=== PATIENT | female | born 1960 | race African-American/Black ===

== ENCOUNTER 2024-06-25 13:13 | Emergency (ER) | payer OTHER, SELFPAY ==
[2024-06-25 13:15] VITALS: BP 138/78
[2024-06-25 13:27] VITALS: BMI 33.9
[2024-06-25 13:37] LABS: % Basophils 0.5 % (0-2); % Eosinophils 0.4 % (0-6); % Immature Granulocytes 0.3 % (0-0.5); % Lymphocytes 14.5 % (20.5-51.1); % Monocytes 5.5 % (1.7-9.3); % Neutrophils 78.8 % (42.2-75.2); Absolute Basophils 0.1 10^3/uL (0-0.2); Absolute Lymphocytes 1.6 10^3/uL (1.2-3.4); Absolute Monocytes 0.6 10^3/uL (0.1-0.6); Absolute Neutrophils 8.8 10^3/uL (1.4-6.5); Hematocrit 42.2 % (37.0-47.0); Hemoglobin 13.5 g/dL (12.0-16.0); Mean Corpuscular Volume 84.4 fL (81.0-99.0); Mean Platelet Volume 11.7 fL (7.4-10.4); Nucleated Red Blood Cells % 0 %; Platelet Count 229 10^3/uL (130-400); Red Cell Dist. Width 13.4 % (11.5-14.5); White Blood Cell Count 11.2 10^3/uL (4.8-10.8)
--- NOTE | 2024-06-25 13:42 | ED.GENMED ---
History of Present Illness
<Natasha Grant PA-C - Last Filed: 06/25/24 18:45>
General
Chief Complaint: Abdominal Pain
Source: patient
Exam Limitations: none
Time Seen by Provider: 06/25/24 13:18
History of Present Illness
History of Present Illness:
64yoF with a history of hypertension, hyperlipidemia, GERD, chronic back pain on morphine, and multiple prior abdominal surgeries presenting via EMS for evaluation of abdominal pain. She started with some soreness to her abdomen yesterday before
she went to bed. She woke up around 3 AM with nausea and vomiting. She has vomited about 5 times since her symptoms began. She started to experience a generalized abdominal discomfort around 7 AM which she describes as a throbbing, pulsating, and
burning pain. She had a normal bowel movement this morning. She is otherwise asymptomatic and denies any chest pain, shortness of breath, hematemesis, UTI symptoms. Previous abdominal surgeries include a gastric sleeve in 2010, duodenal switch in
2018, appendectomy, cholecystectomy, and hysterectomy. She denies any suspicious food intake, recent travel, or sick contacts.
Past History
<Natasha Grant PA-C - Last Filed: 06/25/24 18:45>
Past History
ED Past Medical History: HTN, Hypercholesterolemia and Other (Chronic back pain, Johnson's esophagus)
ED Past Surgical History: Appendectomy, Cholecystectomy, Gynecological (Hysterectomy), Orthopedic and Other (Gastric bypass)
Social History
Tobacco: Smoker
Alcohol: None
Drug: None
Personal: Single
Living: alone
Family History
Family History: Other (Noncontributory)
Phy Exam
<Natasha Grant PA-C - Last Filed: 06/25/24 18:45>
General Physical Exam
General Presentation: well appearing and no apparent distress
General Skin: warm and dry
General Habitus: normal
General Mental: alert
ENT Exam
ENT Exam: normocephalic
Pulmonary Exam
Pulmonary Exam: no respiratory distress
Gastrointestinal Exam
Gastrointestinal Exam: soft, non distended, surgical scar and other (Multiple surgical scars noted. +Generalized abdominal tenderness. Abdomen soft, non-distended. Normoactive bowel sounds. No rebound or guarding.)
Neurological Exam
Neurological Exam: alert
[place] Coma Scale
Eye Opening: Spontaneous
Verbal Response: Oriented
Motor Response: Obeys Commands
GCS Total Score: 15
Skin Exam
Skin Exam: normal color and warm/dry
Psychiatric Exam
Psychiatric Exam: normal mood/affect
<Fawn Bailey NP - Last Filed: 06/25/24 19:00>
[place] Coma Scale
GCS Total Score: 15
Course
<Natasha Grant PA-C - Last Filed: 06/25/24 18:45>
Orders/Labs/Results
Orders:
Orders
06/25/24 13:21
Complete Blood Count/With Diff Urgent
Comprehensive Metabolic Panel Urgent
Lipase Urgent
06/25/24 13:39
CT Abd/pel W Iv And Oral Contr Urgent
Comment:
Reason For Exam: generalized abd pain, vomiting
0.9% Sodium Chloride 1000 ml [Nss] 1,000 ml IV BOLUS
HYDROmorphone [Dilaudid] 1 mg IV NOW STA
Iohexol [Omnipaque] See Protocol PO NOW STA
06/25/24 13:51
Lactate Level [Lactic Acid] Urgent
06/25/24 17:10
Ketorolac [Toradol] 15 mg IV NOW STA
06/25/24 18:38
Electrocardiogram (*1) Urgent
Reason for Study: QTc Monitoring
EKG- Treatment ONCE
Abnormal Lab Results
06/25/24
13:21
WBC 11.2 H 10^3/uL
(4.8-10.8)
MCHC 32.0 L g/dL
(33.0-37.0)
MPV 11.7 H fL
(7.4-10.4)
Absolute Neuts (auto) 8.8 H 10^3/uL
(1.4-6.5)
Neutrophils % 78.8 H %
(42.2-75.2)
Lymphocytes % 14.5 L %
(20.5-51.1)
Glucose 100 H mg/dl
(70-99)
ALT 41 H U/L
(0-35)
06/25/24 13:21
06/25/24 13:21
Vital Signs
Initial and Last Documented VS:
Initial Vital Signs
Temp Pulse Resp BP Pulse Ox
98.2 F 80 16 138/78 96
06/25/24 13:15 06/25/24 13:15 06/25/24 13:15 06/25/24 13:15 06/25/24 13:15
Last Documented Vital Signs
Temp Pulse Resp BP Pulse Ox
98.2 F 55 15 125/69 97
06/25/24 13:15 06/25/24 18:30 06/25/24 18:30 06/25/24 17:10 06/25/24 18:30
<Fawn Bailey, REGISTERED TRAVEL NURSE - Last Filed: 06/25/24 19:00>
Orders/Labs/Results
Orders:
Orders
06/25/24 13:21
Complete Blood Count/With Diff Urgent
Comprehensive Metabolic Panel Urgent
Lipase Urgent
06/25/24 13:39
CT Abd/pel W Iv And Oral Contr Urgent
Comment:
Reason For Exam: generalized abd pain, vomiting
0.9% Sodium Chloride 1000 ml [Nss] 1,000 ml IV BOLUS
HYDROmorphone [Dilaudid] 1 mg IV NOW STA
Iohexol [Omnipaque] See Protocol PO NOW STA
06/25/24 13:51
Lactate Level [Lactic Acid] Urgent
06/25/24 17:10
Ketorolac [Toradol] 15 mg IV NOW STA
06/25/24 18:38
Electrocardiogram (*1) Urgent
Reason for Study: QTc Monitoring
EKG- Treatment ONCE
Abnormal Lab Results
06/25/24
13:21
WBC 11.2 H 10^3/uL
(4.8-10.8)
MCHC 32.0 L g/dL
(33.0-37.0)
MPV 11.7 H fL
(7.4-10.4)
Absolute Neuts (auto) 8.8 H 10^3/uL
(1.4-6.5)
Neutrophils % 78.8 H %
(42.2-75.2)
Lymphocytes % 14.5 L %
(20.5-51.1)
Glucose 100 H mg/dl
(70-99)
ALT 41 H U/L
(0-35)
06/25/24 13:21
06/25/24 13:21
Vital Signs
Initial and Last Documented VS:
Initial Vital Signs
Temp Pulse Resp BP Pulse Ox
98.2 F 80 16 138/78 96
06/25/24 13:15 06/25/24 13:15 06/25/24 13:15 06/25/24 13:15 06/25/24 13:15
Last Documented Vital Signs
Temp Pulse Resp BP Pulse Ox
98.2 F 55 15 125/69 97
06/25/24 13:15 06/25/24 18:30 06/25/24 18:30 06/25/24 17:10 06/25/24 18:30
Madilt;Natasha Grant PA-C - Last Filed: 06/25/24 18:45>
MDM/Problems Addressed
Differential Diagnosis Includes:
64yoF here with n/v that started at 3am followed by generalized abd pain. Hx of multiple prior abdominal surgeries including gastric sleeve and duodenal switch. VSS. She is non-toxic appearing. Abdomen soft, non-distended without any peritoneal
signs. Differential diagnosis includes but is not limited to: gastroenteritis, viral illness, SBO, colitis
Initial ED plan: Check abdominal labs, lactate, and CT abdomen with IV/PO contrast. IV Dilaudid for pain and fluid bolus.
<Fawn Bailey, REGISTERED TRAVEL NURSE - Last Filed: 06/25/24 19:00>
MDM/Problems Addressed
MDM/Problems Addressed:
5:00 p.m.
Case discussed with SHAQUILLE Grant, patient is comfortable, awaiting CAT scan results for abdomen pelvis with p.o. and IV contrast.
6:[address] radiology result read: IMPRESSION:
1. Suspect diffuse enteritis/ileus. Distal small bowel obstruction not excluded. Close clinical and imaging follow-up recommended.
Results discussed with patient and given copy of the report
She states she can call her GI doctor tomorrow for close f/u
She is having no pain now, she is passing gas and had normal BM this a.m.
Offered admission but she is 'totally' comfortable going home and requests to do so
Strict return instructions discussed
7:00 p.m.
EKG NSR with normal QT interval, okay to prescribe Zofran
Pt ambulating around room comfortably, discharged via wheelchair
<Natasha Grant PA-C - Last Filed: 06/25/24 18:45>
*Critical Care Note
Total Time (30-74mins, 75-104mins- exclusive of procedures): Not Applicable
ED Attending Note
<Natasha Grant PA-C - Last Filed: 06/25/24 18:45>
-
Portions of this chart may have been created with voice recognition software.� Occasional wrong word or��sound alike� substitutions may have occurred due to the inherent limitations of voice recognition software.
Discharge Plan
Departure
Patient Disposition: Home (Routine Discharge)
Date of Disposition: 06/25/24
Time of Disposition: 18:36
Patient with high blood pressure during this ER visit?: No
Condition: Good
Discharge Problem:
Enteritis, Abdominal pain
Instructions: Nausea and Vomiting, Adult (DC), Abdominal Pain
Prescriptions:
New
ondansetron 4 mg tablet,disintegrating
4 mg PO Q8H PRN (Reason: nausea and vomiting) 4 Days Qty: 10 0RF
No Action
gabapentin 300 MG capsule
300 mg PO BID
lisinopril 10 MG tablet
10 mg PO DAILY
gabapentin 300 MG capsule
900 mg PO HS
calcium citrate-vitamin D3 1 EACH tablet
1 ea PO QID
escitalopram oxalate 10 MG tablet
10 mg PO DAILY
pantoprazole 40 MG tablet,delayed release (DR/EC)
40 mg PO DAILY
morphine 15 MG tablet
15 mg PO TID
colchicine 0.6 MG capsule
0.6 mg PO DAILY Qty: 15 0RF
Rx Instructions:
Take 1.2 mg �1 for acute gout attack, take another 0.6 mg 1 hour later if symptoms persist
indomethacin 50 MG capsule
50 mg PO TID Qty: 15 0RF
Referrals:
[facility], [Other]
VIBHA ALBERTS RN [Family Provider] -
Activity Restrictions/Additional Instructions:
As we discussed, contact your GI doctor tomorrow and inform him of today's visit and of the CAT scan results.
Return here immediately for worsening abdominal pain, repeated vomiting despite Zofran, fever, or feeling sicker in any way.
I sent a prescription to your pharmacy for Zofran to take as needed for nausea and vomiting
Interventions
Interventions:
*Risk Screen - Suicide Last Done: 06/25/24 13:15
*General Assessment Last Done: 06/25/24 13:15
*Neglect/Abuse Screening Last Done: 06/25/24 13:15
*ED- Fall Risk Assessment Last Done: 06/25/24 13:20
*ED COVID-19 Vaccine History Last Done: 06/25/24 13:20
XF-Psmkaq-Gbuyzhipjb Assessment Last Done: 06/25/24 13:27
Discharge Date and Time
Print Language: PAKISTANI
[2024-06-25 13:48] LABS: ALT (SGPT) 41 U/L (0-35); AST (SGOT) 32 U/L (14-36); Albumin 4.1 g/dl (3.5-5.0); Alkaline Phosphatase 72 U/L (38-126); Blood Urea Nitrogen 11 mg/dl (7-17); Calcium 9.8 mg/dl (8.4-10.2); Carbon Dioxide 30 mmol/L (22-30); Chloride 106 mmol/L (98-107); Estimated Creatinine Clearance 69 ml/min; Glucose 100 mg/dl (70-99); Lipase 108 U/L (23-300); Potassium 4.2 mmol/L (3.5-5.1); Sodium 145 mmol/L (135-145); Total Bilirubin 0.5 mg/dl (0.2-1.3); Total Protein 6.8 g/dl (6.3-8.2); eGFR > 60.00
[2024-06-25] MEDS: NSS 1000 IV (13:53)
[2024-06-25] MEDS: DILAUDID 1 MG IV (13:53)
[2024-06-25] MEDS: OMNIPAQUE 50 ML PO (13:53)
[2024-06-25 14:00] VITALS: BP 128/76
[2024-06-25 14:15] LABS: Lactic Acid 1.2 mmol/L (0.7-2.0)
[2024-06-25 15:00] VITALS: BP 136/86
[2024-06-25 16:00] VITALS: BP 121/107
[2024-06-25 17:10] VITALS: BP 125/69
[2024-06-25] MEDS: TORADOL 15 MG IV (17:21)
[2024-06-25 18:37] VITALS: BP 133/96
== END 2024-06-25 19:04 | disposition home or self-care (01) ==
LOC: EMR 13:13
PROVIDERS: Physician Assistant; EMERGENCY PHYSICIAN Emergency Medicine; FAMILY PHYSICIAN Nurse Practitioner Family
DX: K52.9 Noninfective gastroenteritis and colitis, unspecified (principal); E78.00 Pure hypercholesterolemia, unspecified; I10 Essential (primary) hypertension; F17.200 Nicotine dependence, unspecified, uncomplicated; Z98.84 Bariatric surgery status; Z90.49 Acquired absence of other specified parts of digestive tract; Z90.710 Acquired absence of both cervix and uterus; Z87.19 Personal history of other diseases of the digestive system
CPT/HCPCS: 96374; 96375; 99284; 74177; 80053; 83605; 83690; 85025; 93005; Q9967

== ENCOUNTER 2024-06-26 14:39 | Inpatient (IN) | payer OTHER, SELFPAY ==
[2024-06-26 11:16] VITALS: BP 157/99
--- NOTE | 2024-06-26 12:07 | ED.GENMED ---
History of Present Illness
<EMERITA Perez - Last Filed: 06/26/24 12:34>
General
Chief Complaint: Abdominal Symptoms
Source: patient
Exam Limitations: none
Time Seen by Provider: 06/26/24 11:43
History of Present Illness
History of Present Illness:
64y/o female with a PMH of HTN, hyperlipidemia, GERD, Johnson's esophagus, chronic back pain on morphine, and multiple prior abdominal surgeries presenting to ED via EMS for recurrent abdominal pain, N/V. Pt was in ED yesterday 06/25 for same
symptoms. Stated she felt better after she was discharged but symptoms returned this morning at 8 am. Pain is similar to yesteday, mainly in the epigastric region and radiates around the entire abdomen. Last BM was yesterday, last meal was yesterday
at 7pm. Pt states N/V and abdominal pain returned suddenly this morning, tried taking zofran around 9 am with no relief which prompted her to call EMS. Pt tear eyed and actively vomiting throughout exam. pt denies hematemesis, fevers, chest pain,
SOB, diarrhea, constipation, urinary symptoms.
Past History
<EMERITA Perez - Last Filed: 06/26/24 12:34>
Past History
ED Past Medical History: HTN, Hypercholesterolemia and Other (Chronic back pain, Johnson's esophagus)
ED Past Surgical History: Appendectomy, Cholecystectomy, Gynecological (Hysterectomy), Orthopedic and Other (Gastric bypass)
Social History
Tobacco: Smoker
Alcohol: None
Drug: None
Personal: Single
Living: alone
Family History
Family History: Other (Noncontributory)
Review of Systems
<EMERITA Perez - Last Filed: 06/26/24 12:34>
Review of Systems
Constitutional: Reports chills
EENT: Reports tearing (emotional)
Respiratory: Reports no symptoms
Cardiac: Reports no symptoms
ABD/GI: Reports abdominal pain, nausea and vomiting
: Reports no symptoms
Musculoskeletal: Reports back pain (chronic)
Skin: Reports no symptoms
Neurological: Reports no symptoms
Endocrine: Reports no symptoms
Hematologic/Lymphatic: Reports no symptoms
Phy Exam
<EMERITA Perez - Last Filed: 06/26/24 12:34>
General Physical Exam
General Presentation: other (Actively vomiting, emotional over clinical condition)
General age: appears stated age
General Skin: warm, dry and diaphoretic
General Habitus: normal
General Mental: alert and tearful
General Hydration: appears well hydrated
ENT Exam
ENT Exam: neck supple and normocephalic
Cardiovascular Exam
Cardiovascular Exam: regular rate/rhythm, no gallop, no murmur and normal peripheral pulses
Pulmonary Exam
Pulmonary Exam: lungs clear, no respiratory distress and no cough
Cough: no cough
Gastrointestinal Exam
Gastrointestinal Exam: normal bowel sounds, soft, no pulsatile mass, non distended, no cva tenderness, guarding, surgical scar and tender
Palpation: generalized: Moderate tenderness
Skin Exam
Skin Exam: normal color, warm/dry and diaphoresis
Course
<EMERITA Perez - Last Filed: 06/26/24 12:34>
Orders/Labs/Results
Orders:
Orders
06/26/24 12:04
IV Insert/Care/Rem.- Treatment PRN
Ondansetron Injectable [Zofran] 4 mg IV NOW STA
06/26/24 12:14
Obstruct Series W/PA Chest [CR Obstruct Series W/pa Chest] Urgent
Comment:
Reason For Exam: vomiting, abdominal pain
06/26/24 12:45
Complete Blood Count/With Diff Urgent
Comprehensive Metabolic Panel Urgent
Lipase Urgent
06/26/24 13:23
HYDROmorphone [Dilaudid] 1 mg IV NOW STA
06/26/24 13:36
Lactated Ringers [Lr] 1,000 ml IV BOLUS
Abnormal Lab Results
06/26/24
12:45
WBC 11.1 H 10^3/uL
(4.8-10.8)
MCH 26.8 L pg
(27.0-31.0)
MCHC 32.5 L g/dL
(33.0-37.0)
Absolute Neuts (auto) 9.1 H 10^3/uL
(1.4-6.5)
Neutrophils % 81.9 H %
(42.2-75.2)
Lymphocytes % 12.6 L %
(20.5-51.1)
06/26/24 12:45
Vital Signs
Initial and Last Documented VS:
Initial Vital Signs
Temp Pulse Resp BP Pulse Ox
98.3 F 77 16 157/99 100
06/26/24 11:16 06/26/24 11:16 06/26/24 11:16 06/26/24 11:16 06/26/24 11:16
Last Documented Vital Signs
Temp Pulse Resp BP Pulse Ox
98.3 F 65 20 157/99 97
06/26/24 11:16 06/26/24 12:29 06/26/24 12:29 06/26/24 11:16 06/26/24 12:29
<Onesimo Vanessa, DO - Last Filed: 06/26/24 13:43>
Orders/Labs/Results
Orders:
Orders
06/26/24 12:04
IV Insert/Care/Rem.- Treatment PRN
Ondansetron Injectable [Zofran] 4 mg IV NOW STA
06/26/24 12:14
Obstruct Series W/PA Chest [CR Obstruct Series W/pa Chest] Urgent
Comment:
Reason For Exam: vomiting, abdominal pain
06/26/24 12:45
Complete Blood Count/With Diff Urgent
Comprehensive Metabolic Panel Urgent
Lipase Urgent
06/26/24 13:23
HYDROmorphone [Dilaudid] 1 mg IV NOW STA
06/26/24 13:36
Lactated Ringers [Lr] 1,000 ml IV BOLUS
Abnormal Lab Results
06/26/24
12:45
WBC 11.1 H 10^3/uL
(4.8-10.8)
MCH 26.8 L pg
(27.0-31.0)
MCHC 32.5 L g/dL
(33.0-37.0)
Absolute Neuts (auto) 9.1 H 10^3/uL
(1.4-6.5)
Neutrophils % 81.9 H %
(42.2-75.2)
Lymphocytes % 12.6 L %
(20.5-51.1)
06/26/24 12:45
Vital Signs
Initial and Last Documented VS:
Initial Vital Signs
Temp Pulse Resp BP Pulse Ox
98.3 F 77 16 157/99 100
06/26/24 11:16 06/26/24 11:16 06/26/24 11:16 06/26/24 11:16 06/26/24 11:16
Last Documented Vital Signs
Temp Pulse Resp BP Pulse Ox
98.3 F 65 20 157/99 97
06/26/24 11:16 06/26/24 12:29 06/26/24 12:29 06/26/24 11:16 06/26/24 12:29
Madilt;Onesimo Vanessa, DO - Last Filed: 06/26/24 13:43>
MDM/Problems Addressed
Differential Diagnosis Includes:
Bowel obstruction, bowel perforation
MDM/Problems Addressed:
64-year-old female with partial small bowel obstruction, vomiting, abdominal pain, history of gastric bypass. Admit to hospitalist for further treatment, IV fluids and Dilaudid given.
Chronic conditions affecting care: Previous abdomnial surgery (Gastric bypass)
Acute Exacerbation and/or Progression of Chronic Illness: Previous abdomnial surgery (Gastric bypass)
<Onesimo Vanessa DO - Last Filed: 06/26/24 13:43>
*Radiology
Radiology exam reviewed: radiology read reviewed (Obstruction series shows partial small bowel obstruction)
*Pulse Oximetry
Patient hypoxic: no
*Workforce Management Consultant Interpretation
Rate: Workforce Management Consultant- N/A
*Critical Care Note
Total Time (30-74mins, 75-104mins- exclusive of procedures): Not Applicable
ED Attending Note
<EMERITA Perez - Last Filed: 06/26/24 12:34>
-
Portions of this chart may have been created with voice recognition software.� Occasional wrong word or��sound alike� substitutions may have occurred due to the inherent limitations of voice recognition software.
<Onesimo Vanessa DO - Last Filed: 06/26/24 13:43>
ED Attending Note
Patient seen and examined by attending physician: Yes
I performed a history and physical exam of patient and discussed management with resident, I reviewed resident's note and agree with documented findings and plan of care.: Yes
ED Attending Note:
I have reviewed and agree with history and plan by EMERITA Perez. My exam revealed 64-year-old female in minimal distress. Abdomen exam minimal tenderness to palpation, multiple surgical scars. Will check obstruction series and labs. IV
Zofran.
Discharge Plan
Departure
Patient Disposition: Admit
Date of Disposition: 06/26/24
Time of Disposition: 13:33
Admit to: Med/Surg
Presentation/result/management discussed w/ accepting MD/DO: Hospitalist
Patient with high blood pressure during this ER visit?: Yes
Condition: Fair
Discharge Problem:
Partial obstruction of small intestine, History of gastric bypass
Prescriptions:
No Action
gabapentin 300 MG capsule
300 mg PO BID
lisinopril 10 MG tablet
10 mg PO DAILY
gabapentin 300 MG capsule
900 mg PO HS
calcium citrate-vitamin D3 1 EACH tablet
1 ea PO QID
escitalopram oxalate 10 MG tablet
10 mg PO DAILY
pantoprazole 40 MG tablet,delayed release (DR/EC)
40 mg PO DAILY
morphine 15 MG tablet
15 mg PO TID
colchicine 0.6 MG capsule
0.6 mg PO DAILY Qty: 15 0RF
Rx Instructions:
Take 1.2 mg �1 for acute gout attack, take another 0.6 mg 1 hour later if symptoms persist
indomethacin 50 MG capsule
50 mg PO TID Qty: 15 0RF
ondansetron 4 mg tablet,disintegrating
4 mg PO Q8H PRN (Reason: nausea and vomiting) 4 Days Qty: 10 0RF
Interventions
Interventions:
*Risk Screen - Suicide Last Done: 06/26/24 11:19
*General Assessment Last Done: 06/26/24 12:31
*Neglect/Abuse Screening Last Done: 06/26/24 11:19
*ED- Fall Risk Assessment Last Done: 06/26/24 12:31
*ED COVID-19 Vaccine History Last Done: 06/26/24 12:31
ZQ-Wihlbi-Cpchpmefqx Assessment Last Done: 06/26/24 12:31
Discharge Date and Time
Print Language: DOMINICAN
[2024-06-26] MEDS: ZOFRAN 4 MG IV ×2 (12:40→17:29)
[2024-06-26 13:24] LABS: % Basophils 0.4 % (0-2); % Eosinophils 0.5 % (0-6); % Immature Granulocytes 0.3 % (0-0.5); % Lymphocytes 12.6 % (20.5-51.1); % Monocytes 4.3 % (1.7-9.3); % Neutrophils 81.9 % (42.2-75.2); Absolute Eosinophils 0.1 10^3/uL (0-0.7); Absolute Lymphocytes 1.4 10^3/uL (1.2-3.4); Absolute Monocytes 0.5 10^3/uL (0.1-0.6); Absolute Neutrophils 9.1 10^3/uL (1.4-6.5); Hematocrit 43.1 % (37.0-47.0); Mean Corp Hgb Conc. 32.5 g/dL (33.0-37.0); Mean Corpuscular Hgb 26.8 pg (27.0-31.0); Mean Corpuscular Volume 82.4 fL (81.0-99.0); Nucleated Red Blood Cells % 0 %; Red Blood Cell Count 5.23 10^6/uL (4.20-5.40); Red Cell Dist. Width 13.5 % (11.5-14.5); White Blood Cell Count 11.1 10^3/uL (4.8-10.8)
[2024-06-26] MEDS: DILAUDID 1 MG IV (13:37)
[2024-06-26] MEDS: LR 1000 IV (13:37)
[2024-06-26 13:43] LABS: Blood Urea Nitrogen 10 mg/dl (7-17); Calcium 9.7 mg/dl (8.4-10.2); Carbon Dioxide 29 mmol/L (22-30); Chloride 105 mmol/L (98-107); Glucose 97 mg/dl (70-99); Lipase 46 U/L (23-300); Sodium 142 mmol/L (135-145); eGFR > 60.00
--- NOTE | 2024-06-26 13:54 | HPS.HSE ---
Family Physician
-
Family Physician: Ania Pringle
Chief Complaint
-
abdominal pain, N/V
History of Present Illness
HPI
64F HX Gastric bypass surgery, HTN, hyperlipidemia, GERD, Johnson's esophagus, chronic back pain on morphine, and multiple prior abdominal surgeries presenting to ED via EMS
- recurrent abdominal pain, N/V.
- she was in ED yesterday 06/25 for same symptoms.
- Stated she felt better after she was discharged but symptoms returned this morning at 8 am.
- Pain is similar to yesterday, mainly in the epigastric region and radiates around the entire abdomen.
- Last BM was yesterday, last meal was yesterday at 7pm.
- she states N/V with abdominal pain returned this morning, tried taking zofran around 9 am with no relief which prompted her to call EMS.
- Pt tear eyed and actively vomiting throughout exam.
- she denies hematemesis, fevers, chest pain, SOB, diarrhea, constipation, urinary symptoms.
ER Tx
- LR IVF bolus
- IV Dilaudid 1mg
- IV Zofran 4mg
Medical History
Past Medical History
Past Medical History: Reports GERD (Johnson's esophagus), HTN and Hypercholesterolemia
Additional Past Medical History:
Chronic back pain. Neuropathy
Past Surgical History: Reports Appendectomy, Cholecystectomy, Gynocological (Hysterectomy) and Orthopedic
Additional Past Surgical History:
Gastric bypass
Social History
Tobacco: Smoker
Alcohol: None
Drug: None
Family History
Family History: Not pertinent
Allergies / Home Medications
Allergies reflects when Allergies were last updated in [facility].
Home Medications with original date entered in [facility]
Allergy/Medication List:
Allergies
Allergy/AdvReac Type Severity Reaction Status Date / Time
adhesive tape Allergy Itching Verified 06/25/24 13:26
Home Medications
gabapentin 300 mg capsule 300 mg PO BID 01/19/16
gabapentin 300 mg capsule 900 mg PO HS 01/19/16
lisinopril 10 mg tablet 10 mg PO DAILY 01/19/16
calcium 315 mg (as citrate)-vitamin D3 6.25 mcg (250 unit) tablet 1 ea PO QID 09/12/17
escitalopram oxalate 10 mg tablet 10 mg PO DAILY 09/12/17
pantoprazole 40 mg tablet,delayed release 40 mg PO DAILY 09/12/17
morphine 15 mg immediate release tablet 15 mg PO TID chronic back pain 09/13/17
colchicine 0.6 mg capsule 0.6 mg PO DAILY #15 caps 10/19/18
indomethacin 50 mg capsule 50 mg PO TID #15 caps 10/19/18
ondansetron 4 mg disintegrating tablet 4 mg PO Q8H PRN nausea and vomiting 4 days #10 tabs 06/25/24
Review of Systems
-
Constitutional: Reports No Symptoms
EENT: Reports No Symptoms
Respiratory: Reports No Symptoms
Cardiac: Reports No Symptoms
Abdomen/GI: Reports See HPI, Abdominal Pain, Nausea, Vomiting and Constipated (since 06/25/24 )
: Reports No Symptoms
Musculoskeletal: Reports No Symptoms
Skin: Reports No Symptoms
Neurological: Reports No Symptoms
Endocrine: Reports No Symptoms
Hematologic/Lymphatic: Reports No Symptoms
Psych: Reports No Symptoms
Physical Exam
Vital Signs
Vital Signs
Temp Pulse Resp BP Pulse Ox
98.3 F 65 20 157/99 97
06/26/24 11:16 06/26/24 12:29 06/26/24 12:29 06/26/24 11:16 06/26/24 12:29
Physical Exam
General: Well Developed, Well Nourished and No Apparent Distress
HEENT: NormoCephalic, Moist mucous membranes and Atraumatic
Respiratory: Clear
Cardiac: S1/S2 and Regular Rhythm; No Murmur or Rub
GI: Soft, Normal Bowel Sounds and Other ( surgical scar); No Non Tender (tneder ), Distended or Organomegaly
Rectal: Deferred by Provider
Musculoskeletal: No Clubbing, No Cyanosis and No Edema
Skin: No Rash
Neuro: AO x 3 and Nonfocal/grossly intact
Psych: Calm
Laboratory Results
-
06/26/24 12:45
06/26/24 12:45
Laboratory Results
Total Bilirubin Cancelled 06/26/24 12:45
AST Cancelled 06/26/24 12:45
ALT Cancelled 06/26/24 12:45
Alkaline Phosphatase Cancelled 06/26/24 12:45
Lipase 46 U/L (23-300) 06/26/24 12:45
Data Reviewed
-
Diagnostic Radiology: Report Reviewed by me
CT Scan: Report Reviewed by me
Medical Tests (Nuc Med, Echo, EKG etc): Report Reviewed by me
Lab Data: Labs Reviewed by me
Impression/Plan
-
Laboratory Tests
06/25/24 06/25/24 06/26/24
13:21 13:51 12:45
WBC 11.2 H 11.1 H
Hgb 13.5 14.0
Plt Count 229
Potassium 4.2 Pending
Creatinine 0.9 Pending
Lactic Acid 1.2
Lipase Pending
06/26/24 CR Obstruct Series W/pa Chest
1. Mildly increased small bowel distention compared to yesterday's CT.
vvOral contrast is seen to the level of the mid small bowel.
No oral contrast within the distal small bowel or colon.
2. Findings are suggestive of at least partial mid to distal small intestinal obstruction.
06/25/24 CT Abd/pel W Iv And Oral Contr
. Suspect diffuse enteritis/ileus.
- Distal small bowel obstruction not excluded.
- Close clinical and imaging follow-up recommended.
Last hospitalist admission: 2018
ASSESSMENT & PLAN
Pending Rx reconciliation
Partial mid to distal small intestinal obstruction
Associated with N/V not no relief by PO Zofran
Last BM was 06/26/23
last meal was 06/25/24 at 7pm.
HX multiple abdominal surgery including Gastric bypass surgery
- NPO except ice chips and IV NS
- PRN Dilaudid analgesia for mod - severe pain with hold index for AMS
- PRN IV Zofran for nausea and vomiting
- IV PPI daily in place of PO PPI daily for GERD
- GS consulted
HX GERD with Johnson's esophagus
- IV PPI daily in place of TRAFFIC OPERATIONS ENGINEER PO PPI
Essential Hypertension
- lisinopril 10mg daily ? - Pending Rx reconciliation but will hold due to NPO
- PRN IV Hydralzine for SBP > 165, DBP > 110
HX Neuropathy
- Gabapentin 300mg PO BID ? - Pending Rx reconciliation but will hold due to NPO
HX Depression
- Lexapro daily ? - Pending Rx reconciliation but will hold due to NPO
HX Gout on colchicine - Pending Rx reconciliation
DVT Px: SCD
Full Code:
IP MS
[2024-06-26 15:40] VITALS: BP 154/90
[2024-06-26] MEDS: DILAUDID 0.5 MG IV ×2 (16:22→20:44)
[2024-06-26] MEDS: NSS 1000 IV (16:22)
--- NOTE | 2024-06-26 18:15 | PTCARENOTE ---
Pt arrived to unit from ED around 1630. She was able to ambulate with x1 assist from stretcher to bed in the room. Upon settlement, she c/o pain and nausea. PRNs given. Pt remains NPO. Medications administered. Pt oriented to room, unit and staff.
All needs met at this time. Plan of care ongoing.
[2024-06-26] MEDS: HEPARIN 5000 UNITS SC (20:45)
[2024-06-26 23:35] VITALS: BP 129/70
[2024-06-27] MEDS: ZOFRAN 4 MG IV ×2 (00:27→07:34)
[2024-06-27] MEDS: NSS 1000 IV (04:13)
[2024-06-27] MEDS: DILAUDID 0.5 MG IV (04:14)
[2024-06-27 06:19] LABS: INR 1.06; PT 14.3 Sec (11.4-14.6)
[2024-06-27 06:27] LABS: Blood Urea Nitrogen 8 mg/dl (7-17); Calcium 9.8 mg/dl (8.4-10.2); Carbon Dioxide 25 mmol/L (22-30); Chloride 105 mmol/L (98-107); Glucose 119 mg/dl (70-99); Sodium 144 mmol/L (135-145); eGFR > 60.00
[2024-06-27 06:51] LABS: Hematocrit 42.6 % (37.0-47.0); Mean Corp Hgb Conc. 32.9 g/dL (33.0-37.0); Mean Corpuscular Hgb 27.1 pg (27.0-31.0); Mean Corpuscular Volume 82.4 fL (81.0-99.0); Mean Platelet Volume 12.4 fL (7.4-10.4); Platelet Count 233 10^3/uL (130-400); Red Blood Cell Count 5.17 10^6/uL (4.20-5.40); Red Cell Dist. Width 13.4 % (11.5-14.5); White Blood Cell Count 13.8 10^3/uL (4.8-10.8)
--- NOTE | 2024-06-27 07:17 | W.PN.HOSP.TC ---
Addendum entered and electronically signed by Armani Hahn MD 06/30/24 15:53:
Opioid Dependence
Original Note:
Today's Communication/Plan
-
Transfer to [facility] today
Assessment / Plan
Assessment / Plan
Physical Exam
General: In distress due to pain
HEENT: Normocephalic
Respiratory: Clear to Auscultation Bilaterally
Cardiac: S1/S2 and Regular Rhythm
GI: Soft, Positive Bowel Sounds and Other (surgical scar); Diffuse tenderness present; Distended
Musculoskeletal: No Cyanosis and No Edema
Skin: Warm. Dry.
Neuro: AAO x 3 and Nonfocal/grossly intact
Psych: Calm
Assessment/Plan
Severe Abdominal Pain, Nausea and Vomiting
Small Bowel Obstruction Likely Secondary to Adhesions
History of Multiple Previous Abdominal Surgeries at [facility]
- She was in ED the day before given severe abdominal pain, but abdominal pain came back
- Given her persistent obstruction as well as complex surgical history, surgery recommended transfer to a bariatric surgery center
- Transfer to [facility] given that all of her prior operations (including revisional bariatric surgery) took place over there
- Patient transferred today, accepting physician is Dr. Lizabeth Parker
- Appreciate surgery consultation
- NPO and NG tube as per surgery
History of GERD with Johnson's esophagus
- IV PPI daily in place of [employer] PO PPI
Essential Hypertension
-Monitor, resume home med as long as not hypotensive and when allowed to take home meds
History of Neuropathy
History of Depression
History of Gout
DVT Prophylaxis: Lovenox
Code Status: Full Code
More than 30 minutes spent in discharge including
Final examination of the patient
Summarizing hospital stay
Instructions for continuing care to all relevant caregivers
Preparation of discharge records, prescriptions, and referral forms
Total time spent (in minutes): 37
Anticipated Discharge: Today
Subjective/Interval History
-
Date of Service: June 27, 2024
Patient was seen and examined. She appeared in distress due to nausea and abdominal pain.
Objective Data
-
Labs:
Laboratory Results
06/27/24
05:36
WBC 13.8 H
Hgb 14.0
Hct 42.6
Plt Count 233
PT 14.3
INR 1.06
Sodium 144
Potassium 4.0
Chloride 105
Carbon Dioxide 25
BUN 8
Creatinine 0.7
Glucose 119 H
Calcium 9.8
Vital Signs:
Vital Signs
Temp Pulse Resp BP Pulse Ox
98.5 F 78 17 129/70 93
06/26/24 23:35 06/26/24 23:35 06/26/24 23:35 06/26/24 23:35 06/26/24 23:35
--- NOTE | 2024-06-27 07:39 | CON.GS ---
Addendum entered and electronically signed by Charlie Zuñiga MD 06/27/24 11:09:
Patient seen and examined. Agree with assessment plan as documented below.
Patient is a 64 yo F with a PMH notable for GERD c/b Joe's, HTN, HLD, chronic back pain (on Morphine 15 mg 3 times daily), and s/p multiple abdominal surgeries all performed at [facility] including what appears to be a gastric sleeve in
2010 revised to a duodenal switch in 2018, laparoscopic appendectomy, open cholecystectomy, open total abdominal hysterectomy, and ventral incisional hernia repair with mesh. Ms. Newell presents with acute onset of generalized abdominal pain. She
states that she was doing well with no abdominal symptoms prior to the onset of severe pain beginning Sunday morning. She initially presented to our ED where a CT scan was performed. Symptoms improved prompting discharge from the ED with
outpatient follow-up. Her symptoms recurred prompting presentation to the ED. CT scan imaging was concerning for a small bowel obstruction. She has had persistent issues with nausea and vomiting. She last passed flatus and a normal nonbloody
bowel movement on Sunday. She denies any improvement in her symptoms over the past 12 to 24 hours. No fevers or chills. No tachycardia.
Gen: uncomfortable, pain
Abd: soft, diffusely tender, obese, distended, no involuntary guarding or rebound, prior icisions well healed
Labs and CT scan imaging were reviewed.
Labs notable for a rising leukocytosis with left shift, normal electrolytes and renal function
Initial CT scan imaging as well as repeat x-rays and CT scan demonstrated persistent SBO without clear mesenteric swirling or internal hernia, pneumatosis, or free air
Patient is a 64 yo F p/w SBO likely secondary to adhesions
Site of obstruction appears to be within the RUQ likely related to her prior open cholecystectomy, ventral incisional hernia repair, and duodenal switch. There does not appear to be any radiographic evidence of bowel ischemia or perforation. There
is no clear sign of an internal hernia. Persistent pain, nausea, and rising leukocytosis. Given her persistent obstruction as well as complex surgical history recommend transfer to a bariatric surgery center. Transfer to [facility] given
that all of her prior operations (including revisional bariatric surgery) at that facility.
-- Transfer to [facility]
-- NPO, IVF
-- Would place NGT as she likely just has a sleeve (to be confirmed based on [facility] records)
Original Note:
Consultation
-
Date/Time Consultation Performed: 06/27/24 0800
Medical History
-
Chief Complaint: n/v/abdominal pain
History of Present Illness:
Ms Newell is a 64 yo female with a h/o appendectomy, open cholecystectomy, gastric bypass in 2010 with revision in 2018 (at [facility]), ventral hernia repair, appendectomy, EVERARDO on chronic opioids for back pain who presents with nausea and vomiting
with abdominal pain for the past 2-3 days. Vomited twice during exam with generalized abdominal tenderness. She is crying and asking for anything that will help. She has not been passing flatus or stools.
Past Medical History
Past Medical History: GERD (joe's), HTN, Hypercholesterolemia and Other (Chronic back pain with opioid use)
Past Surgical History: Appendectomy, Bariatric (gastric bypass 2010, revised 2018), Cholecystectomy (open), Gynecological (EVERARDO) and Hernia Repair
Social History
Tobacco: Smoker
Alcohol: None
Family History
Family History: Reviewed & Not Pertinent
Allergies / Home Medications
Allergy/AdvReac Type Severity Reaction Status Date / Time
adhesive tape Allergy Itching Verified 06/25/24 13:26
�Medication �Instructions �Recorded �Confirmed �Type
gabapentin 300 mg capsule 300 mg PO BID@0800,1200 01/19/16 06/26/24 History
gabapentin 300 mg capsule 900 mg PO QPM 01/19/16 06/26/24 History
lisinopril 10 mg tablet 10 mg PO DAILY 01/19/16 06/26/24 History
escitalopram oxalate 10 mg tablet 10 mg PO DAILY 09/12/17 06/26/24 History
pantoprazole 40 mg tablet,delayed 40 mg PO DAILY 09/12/17 06/26/24 History
release
morphine 15 mg immediate release 15 mg PO TID chronic back pain 09/13/17 06/26/24 History
tablet
Medical Marijuana 0.5 ml PO HS 06/26/24 06/26/24 History
calcium 500 mg (as 1 tab PO DAILY@1200 06/26/24 06/26/24 History
carbonate)-vitamin D3 10 mcg (400
unit) tablet (Calcium 500 + D)
diphenhydramine 25 2 tab PO HSPRN PRN sleep 06/26/24 06/26/24 History
mg-acetaminophen 500 mg tablet
(Acetaminophen PM)
ergocalciferol (vitamin D2) 1,250 1,250 mcg PO WEISS 06/26/24 06/26/24 History
mcg (50,000 unit) capsule
ondansetron 4 mg disintegrating 4 mg PO Q8HPRN PRN nausea and 06/26/24 06/26/24 History
tablet vomiting
semaglutide 2 mg/dose (8 mg/3 mL) 2 mg SC TH 06/26/24 06/26/24 History
subcutaneous pen injector (Ozempic)
Review of Systems
-
History Source: Patient
All other systems: Negative unless noted
A 10 point review of systems was completed, and was negative except as per HPI.
Physical Exam
Vital Signs
Temp Pulse Resp BP Pulse Ox
98.5 F 78 17 129/70 93
06/26/24 23:35 06/26/24 23:35 06/26/24 23:35 06/26/24 23:35 06/26/24 23:35
Lab Results
06/27/24 05:36
06/27/24 05:36
WBC 13.8 10^3/uL (4.8-10.8) H 06/27/24 05:36
Hgb 14.0 g/dL (12.0-16.0) 06/27/24 05:36
Hct 42.6 % (37.0-47.0) 06/27/24 05:36
Plt Count 233 10^3/uL (130-400) 06/27/24 05:36
Abs Immat Gran (auto) 0.0 10^3/uL (0-0.05) 06/26/24 12:45
Neutrophils % 81.9 % (42.2-75.2) H 06/26/24 12:45
Physical Exam
General: No Apparent Distress
HEENT: Normocephalic
Respiratory: Non Labored Respirations
GI: Soft, Tender (generalized) and Distended (mild to mod)
Skin: Warm
Neuro: Awake and AO x 3
Psych: Other (tearful)
Assessment / Plan
-
64 yo female h/o appendectomy, open cholecystectomy, ventral hernia repair, gastric bypass in 2010 with revision in 2018 (at [facility]), appendectomy, EVERARDO on chronic opioids for back pain presenting with several days of n/v/abdominal pain.
CT imaging reviewed concerning for distal sbo vs ileus. AFVSS. Mild leukocytosis which is trending up.
--Keep strict NPO
--NGT will be ineffective given her bypass history, antiemetics prn
--IVF as per primary team
--Analgesics as per primary team, on chronic opioids
--CT imaging today to follow PO contrast through
--Given her prior bypass history, recommend transfer to [facility] where her prior surgeries have been preformed. Discussed with attending hospitalist, will reach out to transfer center.
[2024-06-27 07:47] VITALS: BP 163/93
[2024-06-27] MEDS: NSS (PRESERVATIVE FREE) 10 ML IV (08:28)
[2024-06-27] MEDS: MORPHINE SULFATE 5 MG IV (08:30)
[2024-06-27] MEDS: PROTONIX IV 40 MG IV (08:30)
[2024-06-27] MEDS: HEPARIN 5000 UNITS SC (08:34)
[2024-06-27 09:36] VITALS: BMI 33.8
--- NOTE | 2024-06-27 10:59 | CM ---
Alert awake oriented pt who lives with her mom . She lives in 2 story home with 2 steps to enter and 13 steps to bed bath room. She is independent in driving and adls. She uses cane .
Pt is is being flown via [employer] to [facility] for surgery.
No hx of VN /SNF
[facility]
PCP Dr Emma Pringle
PLAN Transfer to [facility]
--- NOTE | 2024-06-27 11:04 | PTCARENOTE ---
Patient trasnported this AM around 1045 to [facility] via [facility] [employer] Report given to flight team. Report called to Tiana at [facility]. Patient stable at this time. Pain meds and nausea meds given prior to transport. Pts daughter Eun updated.
Plan of care ongoing.
--- NOTE | 2024-06-30 08:56 | PN.CDI ---
CDI
- -
CDI:
Physician Documentation Request
Admit Date: [f_Reg Admit Date Time]
Dear Doctor Jovani
Please review the following and provide your response in the progress notes.
Clinical Indicators:
Patient presents with SBO.
Patient is on Chronic opioids for the back pain (morphine 15 mg 3 times a day)
Please indicate in your progress notes if you are in agreement that the above diagnosis is valid for this patient:
Opioid dependence is a valid diagnosis (Please include it in your progress notes)
extermination inspector of the opioid analgetic is a valid diagnosis for this patient
____ - Other
____ - Unable to determine
Use of terms such as suspected, likely, concern for, or probable are acceptable for a diagnosis that is being evaluated, monitored or treated as if it exists and can be coded in the inpatient setting, when documented at the time of discharge.
Thank you,
Fay Buchanan
[facility] [facility]
Please use your independent medical judgment in providing your response.
--- NOTE | 2024-06-30 13:41 | W.DCSUMMARY ---
Discharge Summary
Discharge Data
Date of Admission: 06/26/24
Date of Discharge: 06/27/24
Total time spent discharging patient (in min): 37
-
Pending Results: No
Hospital Course
64 y/o female with past medical history of gastric bypass surgery, hypertension, hyperlipidemia, GERD, Johnson's esophagus, chronic back pain on morphine, and multiple prior abdominal surgeries presented with recurrent abdominal pain and vomiting.
Patient was found to have small bowel obstruction on CT imaging (please see the full CT imaging radiologist's report for all the details). Her small bowel obstruction was thought to be due to adhesions. Surgery team was consulted, and given
patient's persistent obstruction as well as complex surgical history, surgery team recommend transfer to a bariatric surgery center, specifically transfer to [facility] given that all of her prior operations (including revisional
bariatric surgery) took place over there. Patient agreed to be transferred to [facility] for the above reasons. Patient's accepting physician at [facility] was Dr. Lizabeth Parker, and patient was transferred there
within a matter of hours.
Discharge Plan
-
Patient Disposition: Acute Care Hospital
Condition: Serious
Discharge Orders:
Discharge Patient (As Directed); Ordered 06/27/24
Ordered By: Armani Hahn
Discharge Date and Time
Discharge Date/Time: 06/27/24 10:49
Print Language: ZAMBIAN
== END 2024-06-27 10:49 | disposition short-term general hospital (02) | DRG 389 ==
LOC: 3 WEST ACU 14:39
PROVIDERS: ADMITTING PHYSICIAN Internal Medicine; ATTENDING PHYSICIAN Hospitalist; EMERGENCY PHYSICIAN Emergency Medicine; FAMILY PHYSICIAN Internal Medicine; OTHER PHYSICIAN Surgery
DX: K56.51 Intestinal adhesions [bands], with partial obstruction (principal); F11.20 Opioid dependence, uncomplicated; K21.9 Gastro-esophageal reflux disease without esophagitis; I10 Essential (primary) hypertension; E78.00 Pure hypercholesterolemia, unspecified; K22.70 Barrett's esophagus without dysplasia; G89.29 Other chronic pain; G62.9 Polyneuropathy, unspecified; M54.9 Dorsalgia, unspecified; F32.A Depression, unspecified; F17.200 Nicotine dependence, unspecified, uncomplicated; Z98.84 Bariatric surgery status; Z91.048 Other nonmedicinal substance allergy status; Z90.710 Acquired absence of both cervix and uterus; Z90.49 Acquired absence of other specified parts of digestive tract; Z79.899 Other long term (current) drug therapy
CPT/HCPCS: 74022; 74176; 80048; 83690; 85025; 85027; 85610; 96361; 96374; 96375; 99285